=== PATIENT | male | born 1945 | race Caucasian/White ===

== ENCOUNTER 2019-10-29 06:14 | Day surgery (SDC) | payer OTHER, SELFPAY ==
[~2019-10-29] VITALS: Ht 172.7 cm; Wt 81.6 kg
[2019-10-29] MEDS ORDERED: CEFAZOLIN SOD 1 GM in D5W 50 ML IV ONE (07:00)
[2019-10-29] MEDS ORDERED: POLYMYXIN 500,000/BACIT.10,000 UNITS in NS IRR 1 L IR ONE (07:18)
[2019-10-29] MEDS ORDERED: D5/0.45 NS 1,000 ML IV SCH (08:57)
[2019-10-29] MEDS ORDERED: HYDROmorphone 2 MG/ML VIAL IVP PRN (09:00)
[2019-10-29] MEDS ORDERED: HYDROcodone/ACETAMIN 5-325 MG TAB (NORCO/ VICODIN) PO PRN ×2 (09:00)
[2019-10-29] MEDS ORDERED: HYDROmorphone 1 MG INJ. 1 MG/ML AMPUL IVP PRN ×2 (09:15)
[2019-10-29] MEDS ORDERED: ONDANSETRON HCL 4 MG/2 ML VIAL IVP PRN (09:15)
[2019-10-29 11:46] VITALS: BP_SYST 139
== END 2019-10-29 11:51 | disposition home or self-care (01) ==
LOC: SDS 06:14 → SMU 06:15 → SDS 11:51
PROVIDERS: ATTEND Colon & Rectal Surgery
DX: K43.0 Incisional hernia with obstruction, without gangrene (principal); Z11.59 Encounter for screening for other viral diseases
CPT/HCPCS: 49566; 49568; 88302; C1781; J0690; J7060; J7120; U0003